=== PATIENT | female | born 1955 | race Caucasian/White ===

== ENCOUNTER 2019-03-12 19:45 | Inpatient (IN) | payer SELFPAY ==
[2019-03-12] MEDS ORDERED: Sodium Chloride 0.9% 100 ML ONE (20:50)
[2019-03-12] MEDS ORDERED: cefOXitin 2 GM VIAL ONE (20:50)
[2019-03-12] MEDS ORDERED: Fentanyl 100 MCG/2 ML VIAL ONE (21:37)
[2019-03-12] MEDS ORDERED: Morphine 2 MG/ML SYRINGE ONE (21:40)
[2019-03-12] MEDS ORDERED: Bupivacaine/Epinephrine 0.25% 30 ML VIAL ONE (21:46)
[2019-03-12] MEDS ORDERED: Lidocaine 2% PF 5 ML VIAL ONE (22:00)
[2019-03-12] MEDS ORDERED: diphenhydrAMINE 50 MG/ML VIAL ONE (22:00)
[2019-03-12] MEDS ORDERED: PROPOFOL 200 MG/20 ML VIAL ONE (22:00)
[2019-03-12] MEDS ORDERED: Dexamethasone 20 MG/5 ML VIAL ONE (22:00)
[2019-03-12] MEDS ORDERED: Succinylcholine Chloride 20 MG/ML 10 ml SYRINGE FS ONE (22:00)
[2019-03-12] MEDS ORDERED: ePHEDrine 50 MG/ML VIAL ONE (22:00)
[2019-03-12] MEDS ORDERED: Rocuronium Bromide 10 MG/ML (10ML VIAL) ONE (22:00)
[2019-03-12] MEDS ORDERED: Glycopyrrolate 0.2 MG/ML 5 ML SYRINGE ONE (22:00)
[2019-03-12] MEDS ORDERED: Ondansetron PF 4 MG/2 ML Vial ONE (22:00)
[2019-03-12] MEDS ORDERED: Ketorolac Tromethamine 30 MG/ML VIAL ONE (22:00)
[2019-03-12] MEDS ORDERED: Promethazine HCl 25 MG/ML VIAL IM PRN ×2 (22:50→23:01)
[2019-03-12] MEDS ORDERED: Ondansetron PF 4 MG/2 ML Vial IVP PRN (22:50)
[2019-03-12] MEDS ORDERED: Morphine 4 MG/ML VIAL SLOW IVP PRN (22:50)
[2019-03-12] MEDS ORDERED: Dextrose 50% Abboject 50 ML SYRINGE SLOW IVP PRN (22:50)
[2019-03-12] MEDS ORDERED: Dextrose 5% in Water 1,000 ML IV PRN (22:50)
[2019-03-12] MEDS ORDERED: hydrALAZINE 20 MG/ML VIAL SLOW IVP PRN (22:50)
[2019-03-12] MEDS ORDERED: HYDROcodone/Acetaminophen 10/325 mg Tablet PO PRN (22:50)
[2019-03-12] MEDS ORDERED: Morphine 2 MG/ML SYRINGE SLOW IVP PRN (22:50)
[2019-03-12] MEDS ORDERED: Acetaminophen 1,000 MG in Premix Bag 1 BAG IVPB PRN (22:53)
[2019-03-12] MEDS ORDERED: Meperidine HCl/PF 25 MG/ML VIAL SLOW IVP PRN (23:01)
[2019-03-12] MEDS ORDERED: Ondansetron HCl/PF 4 MG/2 ML Vial IVP PRN (23:01)
[2019-03-13 00:16] VITALS: BMI 29.5
[2019-03-13] MEDS: Ketorolac Tromethamine 30 MG/ML VIAL IVP SCH ×4 (00:22→17:20)
[2019-03-13] MEDS: Piperacillin/Tazobactam 3.375 GM in Sodium Chloride 0.9% 100 ML IVPB SCH ×4 (00:22→17:20)
[2019-03-13] MEDS: D5 1/2 NS w/20 mEq KCL 1,000 ML IV SCH ×4 (00:23→21:09)
--- NOTE | 2019-03-13 01:32 | HP ---
CHIEF COMPLAINT: Right lower quadrant abdominal pain. HISTORY OF PRESENT ILLNESS: The patient is a 63-year-old female with a 24-hour history of lower abdominal pain, nausea and vomiting, some diarrhea, the upper crest, became more right-sided today, some fever, last meal was yesterday. PAST MEDICAL HISTORY: Hypertension, hyperlipidemia. PAST SURGICAL HISTORY: She has had open hysterectomy. MEDICATIONS: 1. Lisinopril. 2. Celexa. ALLERGIES: NO KNOWN DRUG ALLERGIES. FAMILY HISTORY: Atrial fibrillation. SOCIAL HISTORY: She is single. 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 No alcohol or tobacco. PHYSICAL EXAMINATION: VITAL SIGNS: Temperature 99.4, pulse 103, blood pressure 100/72. GENERAL: She is awake, alert, in minimal distress. HEENT: Unremarkable. LUNGS: Clear. HEART: Regular rate and rhythm. ABDOMEN: Soft, obese. She has percussion tenderness in the right lower quadrant. No palpable hernias. EXTREMITIES: Unremarkable. LABORATORY DATA: Her white count is 8.2, H and H 14 and 43, platelet count 304. Electrolytes are fine. CO2 is 16. Her glucose is elevated at 123. LFTs normal. Urinalysis was fine. CT scan shows acute appendicitis. ASSESSMENT: Acute appendicitis. PLAN: Laparoscopic appendectomy. CONSENT: I have discussed the planned procedure as well as risk of bleeding, infection, injury to bowel, bladder, need to open, she understands and gives informed consent. Job ID: [id number]
[2019-03-13 05:07] LABS: Band 46 % (5-11); Hemoglobin 11.4 g/dL (12.0-16.0); Lymphocytes 11 % (21-51); MDiff Complete? YES; Mean Corpuscular Hemoglobin 34.3 pg (27.0-31.0); Mean Platelet Volume 7.7 fL (7.4-10.4); Monocytes 21 % (0-10); Neutrophil 22 % (42-75); Platelet Count 201 thou/uL (130-400); Platelet Morphology Comment Appears Adequate; RBC Distribution Width 12.9 % (11.5-14.5); RBC Morphology Normal; Red Blood Cell (RBC) Count 3.32 mill/uL (4.20-5.40); Reflex for Review?? YES; White Blood Cell (WBC) Count 5.2 thou/uL (4.8-10.8)
[2019-03-13 05:17] LABS: Anion Gap 11 mmol/L (10-20); BUN (Urea Nitrogen) 13 mg/dL (9.8-20.1); Calc. Creatinine Clearance 78 mL/min (70-130); Calcium 8.4 mg/dL (7.8-10.44); Carbon Dioxide 20 mmol/L (23-31); Chloride 110 mmol/L (98-107); Estimated GFR-MDRD 64; Glucose 160 mg/dL (80-115); Potassium 3.5 mmol/L (3.5-5.1); Sodium 137 mmol/L (136-145)
[2019-03-13] MEDS: Famotidine/PF 20 mg/2ml Vial SLOW IVP SCH ×2 (08:23→20:04)
[2019-03-13] MEDS: Enoxaparin Sodium 40 MG/0.4 ML SYRINGE SC SCH (08:24)
[2019-03-13] MEDS: Famotidine 20 MG TAB PO SCH ×2 (08:24→21:08)
[2019-03-13] MEDS ORDERED: metroNIDAZOLE 500 MG in Premix Bag 1 BAG IVPB SCH (09:00)
--- NOTE | 2019-03-13 09:13 | PDOC.GSPN ---
Surgery Progress Note: Subj - Subjective Narrative: Ms. Contreras is a 63 y/o female post operative day #1 from Laproscopic Appendectomy for acute appendicitis. Today she reports that she is recovering well and slept well overnight. She has some appropriate abdominal pain in the lower quadrants rated at a 2/10, near the her incision sites. She had 80 mL of sero-sanguineous fluid draining from her abdominal daniel drain, but no drainage from any other abdominal incision sites. She has not eaten since surgery, but her clear liquids breakfast just arrived. She has not experienced any nausea or vomiting and has not had a bowel movement since her surgery. She does not have a gray catheter and does not express any issues with voiding. Additional symptoms include a mild headache, but no chills. She has not ambulated since her surgery. Surgery Progress Note: Obj - Vital signs Vital signs: Vital Signs - Most Recent Temp Pulse Resp BP Pulse Ox 98 F 72 14 99/62 98 03/13/19 07:26 03/13/19 07:26 03/13/19 07:26 03/13/19 07:26 03/13/19 07:26 - Physical Exam General: no distress, other (Alert and cooperative throughout the encounter.) Cardiovascular: regular rate and rhythm, no murmur Respiratory: clear to auscultation, normal expansion Abdomen: soft, appropriately tender, other (No rigidity or gaurding. Hypoactive bowel sounds.) Wound: dressing clean,dry,intact, healing well Surgery Progress Note: Results - Labs Result Diagrams: 03/13/19 04:06 03/13/19 04:06 Lab results: Laboratory Results - last 24 hr 03/13/19 03/13/19 04:06 04:06 WBC 5.2 RBC 3.32 L Hgb 11.4 L Hct 33.5 L MCV 101.0 H MCH 34.3 H MCHC 34.0 RDW 12.9 Plt Count 201 MPV 7.7 Neutrophils % (Manual) 22 L Band Neuts % (Manual) 46 H Lymphocytes % (Manual) 11 L Monocytes % (Manual) 21 H Plt Morphology Comment Appears Adequate RBC Morph Comment Normal Sodium 137 Potassium 3.5 Chloride 110 H Carbon Dioxide 20 L Anion Gap 11 BUN 13 Creatinine 0.90 Estimated GFR (MDRD) 64 Glucose 160 H Calcium 8.4 Surgery Progress Note: A/P - Plan Plan: Ms. Contreras is a 63 y/o female post operative day #1 from a laproscopic appendectomy for acute appendicitis and is recovering well. She does not have an elevated WBC, but has increased bands that is likely residual result from her appendicitis. She did not have fever or chills, but plan is to continue her on zosyn and flagyl and monitor daily CBC for signs of infection. Her peritoneal fluid cultures results showed gram negative rods, for which the current antibiotic regimen should suffice. Her hemoglobin was low at 11.4 and plan is to continue monitoring for post op improvement. She has a history of hypertension, but her bp readings have been around 99/62 and she is on maintenance IVF of D5 1/2 NS w/ 20 mEq KCL at a rate of 110 ml/hr. She has not taken her home medicine and has not received any anti-hypertensive meds. Plan to continue her IVF at 110 ml/hrl, monitor for bp elevation and not restart her prescribed lisinopril yet. Continue clear liquid diet as tolerated. Continue enoxaparin for DVT prophylaxis and Famotidine for GERD. Patient has been encouraged to ambulate and use incentive spirometry. Addendum - Physician - Physician Attestation Date/Time: 03/13/19 1357 Doing well with clears. advance to fulls I personally performed or re-performed the physical examination and medical decision making. I have verified all student documentation or findings, including history, physical exam and/or medical decision making.
--- NOTE | 2019-03-13 09:51 | OP ---
DATE OF PROCEDURE: 03/12/2019 PREOPERATIVE DIAGNOSIS: Acute appendicitis. PROCEDURE PERFORMED: Laparoscopic appendectomy, drainage of pelvic and interloop abscesses. INDICATIONS FOR PROCEDURE: This is a 63-year-old female with a 2-day history of abdominal pain, became a little more right lower quadrant this morning, associated with fever. CT scan showed acute appendicitis. FINDINGS: Ruptured appendicitis with fairly generalized pelvic peritonitis and a pelvic abscess as well as some interloop abscesses. DESCRIPTION OF PROCEDURE: After informed consent was obtained, the patient was taken to the operating room, given general endotracheal anesthesia, placed in the supine position. Abdomen was prepped and draped in usual fashion. Local anesthesia was infiltrated subcutaneously and deep. A subumbilical incision was performed. Subcu was divided sharply. The fascia was grasped and 2 stay sutures of 0 Vicryl were placed in each side of midline. Midline was incised. Digital palpation revealed no local adhesions. A blunt 12-mm trocar was inserted. Pneumoperitoneum was created to a pressure of 15 mmHg. A 0-degree laparoscope was inserted and under direct vision two 5 mm ports were placed, one suprapubic, one right lateral abdomen. There was evidence of generalized peritonitis with interloop abscesses and pelvic abscess. The appendix was found, it was necrotic. The mesoappendix was divided with a LigaSure. The base of the appendix was divided at the cecum with 45 mm white load stapler. The appendix was placed in endosac, removed from the abdomen in the endosac. Then, cultures were obtained of this peritoneal fluid. The abscesses were drained and irrigated the peritoneal cavity. A drain was placed and brought out through the suprapubic incision, placed in the pelvis and along the right gutter. Hemostasis was assured. Trocars and retractors were removed. The fascia was closed with interrupted 0 Vicryl suture. The skin was closed with interrupted 4-0 Rapide. Dermabond was applied. The patient tolerated the procedure well, transferred to Recovery in good condition. Job ID: [id number]
[2019-03-13] MEDS: HYDROcodone/Acetaminophen 10/325 mg Tablet PO PRN ×2 (13:29→21:08)
[2019-03-14] MEDS: Ketorolac Tromethamine 30 MG/ML VIAL IVP SCH ×5 (00:24→23:51)
[2019-03-14] MEDS: Piperacillin/Tazobactam 3.375 GM in Sodium Chloride 0.9% 100 ML IVPB SCH ×5 (00:24→23:51)
[2019-03-14 06:32] LABS: Band 43 % (5-11); Hemoglobin 10.8 g/dL (12.0-16.0); Lymphocytes 16 % (21-51); MDiff Complete? YES; Mean Corpuscular HGB CONC 32.9 g/dL (32.0-36.0); Mean Corpuscular Hemoglobin 33.4 pg (27.0-31.0); Mean Platelet Volume 7.9 fL (7.4-10.4); Monocytes 7 % (0-10); Neutrophil 33 % (42-75); Platelet Count 187 thou/uL (130-400); Reactive Lymphocytes 1 % (0-10); Red Blood Cell (RBC) Count 3.25 mill/uL (4.20-5.40); White Blood Cell (WBC) Count 11.2 thou/uL (4.8-10.8)
--- NOTE | 2019-03-14 07:43 | PDOC.GSPN ---
Surgery Progress Note: Subj - Subjective Narrative: Ms. Contreras is a 63 y/o female post operative day #2 from a laproscopic appendectomy for acute appendicitis. She reports that she is 'doing better' today and that she slept well overnight. Her pain is still at a 2-3/10, controlled with pain meds and is located in the lower abdomen near her incision sties. She has not had a bowel movement yet, but has been voiding fine. She has tolerated her full liquid diet and did not experience any nausea or vomiting. Her abdominal CHENTE drain drained 75 ml of sero-sanguineous fluid yesterday. She has only ambulated to the bathroom and plans to walk with her nurse today. She denies shortness of breath and has not had a fever in the last 24 hrs. She has not been using her incentive spirometry device She reporting a single mild episode of chills overnight. Surgery Progress Note: Obj - Vital signs Vital signs: Vital Signs - Most Recent Temp Pulse Resp BP Pulse Ox 98.1 F 88 18 115/78 91 L 03/14/19 04:16 03/14/19 04:16 03/14/19 04:16 03/14/19 04:16 03/14/19 04:37 - Physical Exam General: no distress Cardiovascular: regular rate and rhythm, no murmur Respiratory: clear to auscultation, other (mildly increased respiratory effort with inspiration.) Abdomen: soft, appropriately tender, other (hypoactive bowel sounds.) Psychiatric: speech is normal Wound: dressing clean,dry,intact Surgery Progress Note: Results - Labs Result Diagrams: 03/14/19 05:20 03/13/19 04:06 Lab results: Laboratory Results - last 24 hr 03/14/19 05:20 WBC 11.2 H RBC 3.25 L Hgb 10.8 L Hct 32.9 L MCV 101.0 H MCH 33.4 H MCHC 32.9 RDW 13.0 Plt Count 187 MPV 7.9 Neutrophils % (Manual) 33 L Band Neuts % (Manual) 43 H Lymphocytes % (Manual) 16 L Reactive Lymphs % 1 Monocytes % (Manual) 7 Surgery Progress Note: A/P - Plan Plan: Ms. Contreras is a 63 y/o female post operative day #2 from a laproscopic appendectomy for acute appendicitis. Her WBC today increased to 11.2 (from 5.2 yesterday), but she has not had a fever and does seem to be acutely sick. However she is still draining sero-sanguineous fluid from her abdominal site and mentioned having chills overnight, so we will plan to continue her zosyn and metronidazole treatment. Hemoglobin is 10.8 (down from 11.4 yesterday) and should continue to be monitored with daily CBC. Her bp today was 115/78, an improvement from her hypotension yesterday, and she is still on 70 ml/hr of maintenance IVF. Since she is tolerating P.O. and she has had elevated blood glucose level, I recommend switching her mIVF from D5 1/2 NS w/ 20 mEq KCL to just 1/2 NS w/ 20 mEq KCL. She has been encouraged to ambulate and use incentive spirometry. Addendum - Physician - Physician Attestation Date/Time: 03/14/19 1334 HL IVF Still has bandemia although clinically improvedl Likely DC tomorrow I personally performed or re-performed the physical examination and medical decision making. I have verified all student documentation or findings, including history, physical exam and/or medical decision making.
[2019-03-14] MEDS: Famotidine 20 MG TAB PO SCH ×2 (09:00→20:32)
[2019-03-14] MEDS: Enoxaparin Sodium 40 MG/0.4 ML SYRINGE SC SCH (09:00)
[2019-03-14] MEDS: Famotidine/PF 20 mg/2ml Vial SLOW IVP SCH ×2 (09:02→20:31)
[2019-03-14] MEDS: D5 1/2 NS w/20 mEq KCL 1,000 ML IV SCH ×2 (12:08→14:12)
[2019-03-14] MEDS ORDERED: Milk Of Magnesia 30 ML UDCUP PO SCH (13:45)
[2019-03-14] MEDS: HYDROcodone/Acetaminophen 10/325 mg Tablet PO PRN (18:15)
[2019-03-15 05:33] LABS: #Eosinphils 0.2 thou/uL (0.0-0.7); #Lymphocytes 1.9 thou/uL (1.20-3.40); #Monocytes 0.8 thou/uL (0.11-0.59); #Neutrophils 11.1 thou/uL (1.40-6.50); %Basophils 0.3 % (0.0-1.0); %Eosinophils 1.5 % (0.0-10.0); %Lymphocytes 13.6 % (21.0-51.0); %Monocytes 5.9 % (0.0-10.0); %Neutrophils 78.8 % (42.0-75.0); Hemoglobin 12.4 g/dL (12.0-16.0); Mean Corpuscular HGB CONC 33.2 g/dL (32.0-36.0); Mean Corpuscular Hemoglobin 33.8 pg (27.0-31.0); Platelet Count 199 thou/uL (130-400); RBC Distribution Width 13.2 % (11.5-14.5); Red Blood Cell (RBC) Count 3.67 mill/uL (4.20-5.40); White Blood Cell (WBC) Count 14.1 thou/uL (4.8-10.8)
[2019-03-15] MEDS: Piperacillin/Tazobactam 3.375 GM in Sodium Chloride 0.9% 100 ML IVPB SCH ×4 (06:03→23:18)
[2019-03-15] MEDS: Ketorolac Tromethamine 30 MG/ML VIAL IVP SCH ×4 (06:03→23:18)
[2019-03-15] MEDS: Famotidine 20 MG TAB PO SCH ×2 (07:48→20:04)
[2019-03-15] MEDS: Enoxaparin Sodium 40 MG/0.4 ML SYRINGE SC SCH (07:48)
[2019-03-15] MEDS: Famotidine/PF 20 mg/2ml Vial SLOW IVP SCH ×2 (07:49→20:03)
--- NOTE | 2019-03-15 10:58 | PRG ---
DATE OF SERVICE: 03/15/2019 SUBJECTIVE: Ms. Contreras is doing well. She is tolerating a full liquid. She is ambulatory more. She denies nausea or vomiting. She had a bowel movement after the milk of magnesium yesterday. OBJECTIVE: VITAL SIGNS: Her blood pressure 114/65, O2 saturation is 90% on room air, respirations 16, pulse 112, temperature 99, and temperature max 99.3. GENERAL: Had a bowel movement and multiple voids. ABDOMEN: Soft, minimally distended. Wounds are healing well. CHENTE serosanguineous. LABORATORY DATA: White blood cell count is 14, but her bandemia has resolved. Creatinine 0.90. ASSESSMENT: Perforated appendicitis, status post washout, appendectomy, and drain placement. PLAN: Drains only serosanguineous were removed at today. Given her borderline tachycardia, recommend she stay one more day. Concerning bandemia has now resolved. Advance to GI soft diet. IV antibiotics for 24 more hours. Likely discharge home tomorrow. Job ID: [id number]
[2019-03-15] MEDS ORDERED: Acetaminophen 500 MG TAB PO PRN (17:53)
[2019-03-16 04:26] LABS: #Eosinphils 0.2 thou/uL (0.0-0.7); #Lymphocytes 2.6 thou/uL (1.20-3.40); #Monocytes 1.2 thou/uL (0.11-0.59); #Neutrophils 9.4 thou/uL (1.40-6.50); %Basophils 0.4 % (0.0-1.0); %Eosinophils 1.6 % (0.0-10.0); %Lymphocytes 19.2 % (21.0-51.0); %Monocytes 8.8 % (0.0-10.0); %Neutrophils 70.1 % (42.0-75.0); Hemoglobin 12.1 g/dL (12.0-16.0); Mean Corpuscular Hemoglobin 34.4 pg (27.0-31.0); Mean Platelet Volume 7.3 fL (7.4-10.4); Platelet Count 244 thou/uL (130-400); Red Blood Cell (RBC) Count 3.51 mill/uL (4.20-5.40); White Blood Cell (WBC) Count 13.4 thou/uL (4.8-10.8)
[2019-03-16] MEDS: Piperacillin/Tazobactam 3.375 GM in Sodium Chloride 0.9% 100 ML IVPB SCH ×3 (05:47→17:22)
[2019-03-16] MEDS: Famotidine/PF 20 mg/2ml Vial SLOW IVP SCH ×2 (08:41→22:39)
[2019-03-16] MEDS: Famotidine 20 MG TAB PO SCH ×2 (08:41→20:40)
[2019-03-16] MEDS: Enoxaparin Sodium 40 MG/0.4 ML SYRINGE SC SCH (08:41)
--- NOTE | 2019-03-16 09:20 | PRG ---
DATE OF SERVICE: 03/16/2019 SUBJECTIVE: Ms. Contreras is having more chills this morning, but she is afebrile. She tolerated the GI soft diet without difficulty. She is ambulatory. She is able to urinate without difficulty. Her drain has been removed. OBJECTIVE: VITAL SIGNS: Blood pressure 148/85, pulse 88, respirations are 16. Her T max is 100.6. ABDOMEN: Soft. She does have bowel sounds. Her wounds are healing well. LABORATORY DATA: White blood cell count is 13 with a normal differential. Creatinine 0.9. ASSESSMENT: Postoperative washout and appendectomy for perforated appendicitis. Drain was not putting out anything and has been removed. Her white blood cell count is borderline. Her temperatures are borderline. She is feeling slightly less good today than yesterday. PLAN: Continue observation. Continue IV Zosyn. Restart her blood pressure medicine. Hopefully if feels better, home tomorrow. Job ID: [id number]
[2019-03-16] MEDS: Lisinopril 20 MG TAB PO SCH (12:13)
[2019-03-17] MEDS: Piperacillin/Tazobactam 3.375 GM in Sodium Chloride 0.9% 100 ML IVPB SCH ×2 (00:25→05:57)
[2019-03-17 05:55] LABS: #Eosinphils 0.2 thou/uL (0.0-0.7); #Lymphocytes 1.8 thou/uL (1.20-3.40); #Monocytes 1.3 thou/uL (0.11-0.59); #Neutrophils 5.8 thou/uL (1.40-6.50); %Basophils 0.4 % (0.0-1.0); %Eosinophils 2.1 % (0.0-10.0); %Lymphocytes 19.4 % (21.0-51.0); %Neutrophils 64.2 % (42.0-75.0); Hemoglobin 11.4 g/dL (12.0-16.0); Mean Corpuscular HGB CONC 34.2 g/dL (32.0-36.0); Mean Corpuscular Hemoglobin 34.1 pg (27.0-31.0); Mean Corpuscular Volume 99.7 fL (78.0-98.0); Mean Platelet Volume 6.8 fL (7.4-10.4); Platelet Count 283 thou/uL (130-400); RBC Distribution Width 13.1 % (11.5-14.5); Red Blood Cell (RBC) Count 3.36 mill/uL (4.20-5.40); White Blood Cell (WBC) Count 9.1 thou/uL (4.8-10.8)
[2019-03-17] MEDS: Lisinopril 20 MG TAB PO SCH (09:07)
[2019-03-17] MEDS: Famotidine/PF 20 mg/2ml Vial SLOW IVP SCH (09:07)
[2019-03-17] MEDS: Famotidine 20 MG TAB PO SCH (09:07)
[2019-03-17] MEDS: Enoxaparin Sodium 40 MG/0.4 ML SYRINGE SC SCH (09:07)
[2019-03-17 11:25] VITALS: BP 129/84; TEMP 98.6
--- NOTE | 2019-03-17 11:56 | DIS ---
DATE OF ADMISSION: 03/12/2019 DATE OF DISCHARGE: 03/17/2019 DISCHARGE DIAGNOSES: Ruptured appendicitis with generalized peritonitis and pelvic abscess. PROCEDURES DURING ADMISSION: Laparoscopic appendectomy and drainage of pelvic abscess. HOSPITAL COURSE: The patient was admitted, taken to the operating room, where she underwent a laparoscopic appendectomy. She was found to have peritonitis with interloop abscesses and pelvic abscess. These were drained. She was irrigated, washed out. Appendix was removed. Postoperatively, she was treated with IV antibiotics. A drain was also in her pelvis. Over a few days, the drain output became minimal. This was removed. She is currently doing fine. Her pain is minimal. She is tolerating the diet well. Her bowels are functioning well. Pain controlled on p.o. medications. She is discharged home on hydrocodone, Zofran, and doxycycline. She will follow up with me in 2 weeks. Job ID: [id number]
== END 2019-03-17 12:20 | disposition home or self-care (01) | DRG 340 ==
LOC: ERS 19:45 → SDC 20:13 → SURG B 22:50
PROVIDERS: ADMIT Surgery; ATTEND Surgery
PROC: 0DTJ4ZZ Resection of Appendix, Percutaneous Endoscopic Approach (ICD-10-PCS; principal; 2019-03-12)
PROC: 0W9H40Z Drainage of Retroperitoneum with Drainage Device, Percutaneous Endoscopic Approach (ICD-10-PCS; 2019-03-12)
DX: K35.21 Acute appendicitis with generalized peritonitis, with abscess (principal); K35.31 Acute appendicitis with localized peritonitis and gangrene, without perforation; I10 Essential (primary) hypertension; E78.5 Hyperlipidemia, unspecified; Z90.710 Acquired absence of both cervix and uterus; Z79.899 Other long term (current) drug therapy; I95.9 Hypotension, unspecified; K21.9 Gastro-esophageal reflux disease without esophagitis; D72.825 Bandemia
CPT/HCPCS: 36415; 80048; 85025; 85060; 87070; 87205; 88304; 99285; J0131; J0694; J1100; J1200; J1650; J1885; J2001; J2270; J2405; J2543; J2704; J3010; J3490; S0028

== ENCOUNTER 2022-12-29 19:00 | Outpatient (CLI) | payer MEDICARE | END 2022-12-29 19:01 | disposition home or self-care (01) | LOC: SLEEPLAB 19:00 | PROVIDERS: ATTEND Orthopaedic Surgery | DX: G47.33 Obstructive sleep apnea (adult) (pediatric) (principal); R53.83 Other fatigue; E66.9 Obesity, unspecified; Z68.32 Body mass index [BMI] 32.0-32.9, adult; R06.83 Snoring | CPT/HCPCS: 95811 ==

== ENCOUNTER 2023-02-08 07:32 | Outpatient (CLI) | payer MEDICARE ==
[2023-02-08] MEDS ORDERED: Iopamidol-370 76% 500 ML MDV (1 ML CHARGE) ONE (09:44)
== END 2023-02-08 07:33 | disposition home or self-care (01) ==
LOC: BICCT 07:32
PROVIDERS: ATTEND Specialist
DX: I77.810 Thoracic aortic ectasia (principal)
CPT/HCPCS: 71275; 82565